=== PATIENT | female | born 1990 | race Caucasian/White ===

== ENCOUNTER → 2018-03-24 | Outpatient (CLI) | payer BC ==
[~2018-03-24] MED LIST: ACET-3017 PO; ALBU8.5H IH; AUG500 PO; CEF300 PO; CETI10CA8 PO; DAR100 PO; ETON1VAG7 VG; FLUT1AER INH; FLUT1BLS3 PO; HYDR-3083 PO; IBUP-56 PO; LOR5/325 PO; METR-160 PO; MONT10TA PO; MONT4GRA2 PO; NO ROUTINE MEDS; OMEP-137 PO; ONDA4TAB PO; PANT40TA65 PO; PRED20TA6 PO; PRO25 PO
== END ==
LOC: LAB 14:24
PROVIDERS: ATTEND Obstetrics & Gynecology
DX: N76.0 Acute vaginitis (principal)
CPT/HCPCS: 87210

== ENCOUNTER → 2019-01-13 | Outpatient (CLI) | payer BC ==
[~2019-01-13] MED LIST changes: +LEVONORGESTREL; -METR-160 PO; +METR500T15 PO
== END ==
LOC: RESP 00:43
PROVIDERS: ATTEND Emergency Medicine
DX: G47.30 Sleep apnea, unspecified (principal)